=== PATIENT | male | born 1995 | race African-American/Black ===

== ENCOUNTER 2017-10-22 01:42 | Emergency (ER) | payer BC, OTHER ==
[~2017-10-22] VITALS: Ht 182.9 cm; Wt 81.2 kg
[~2017-10-22 01:42] MED LIST: ALBU0.63 IH; LEVE500T9 PO
--- NOTE | 2017-10-22 02:00 | NUR ---
Patient brought in by rescue from house green party for altered mental status due to possible ETOH. Patient upon arrival confused but speaking with clear speech. Hyperventalating. C/O SOTELO.
[2017-10-22 02:18] LABS: BASOPHILS % (AUTO) 0.7 % (0.0-2.0); EOSINOPHILS # (AUTO) 0.2 K/uL (0.0-0.7); HEMATOCRIT 44.7 % (36.7-47.1); HEMOGLOBIN 14.9 g/dL (12.5-16.3); LYMPHOCYTES # (AUTO) 2.7 K/uL (20.0-40.0); LYMPHOCYTES % (AUTO) 48.9 % (20.5-51.5); MEAN CORPUSCULAR HEMOGLOBIN 31.1 uug (23.8-33.4); MEAN CORPUSCULAR HGB CONC 33 g/dL (32.5-36.3); MEAN CORPUSCULAR VOLUME 93.1 fL (73.0-96.2); MONOCYTES # (AUTO) 0.5 K/uL (2.0-10.0); MONOCYTES % (AUTO) 9.1 % (0.0-11.0); NEUTROPHILS # (AUTO) 2.1 K/uL (1.8-8.9); NEUTROPHILS % (AUTO) 38.3 % (38.5-71.5); PLATELET COUNT (AUTO) 213 K/uL (152-348); WHITE BLOOD COUNT (AUTO) 5.5 K/uL (3.6-10.2)
[2017-10-22 02:24] LABS: CARBON DIOXIDE 13 mmol/L (21-32); CHLORIDE 97 mmol/L (98-107); CREATININE 1.6 mg/dL (0.6-1.3); GLUCOSE 125 mg/dL (74-106); POTASSIUM 3.6 mmol/L (3.5-5.1); UREA NITROGEN, BLOOD 8 mg/dL (7-18)
[2017-10-22 02:41] LABS: ALANINE AMINOTRANSFERASE 19 U/L (16-63); ALKALINE PHOSPHATASE 46 U/L (50-136); ASPARTATE AMINOTRANSFERASE 15 U/L (15-37); BILIRUBIN,DIRECT 0.2 mg/dL (0.0-0.2); BILIRUBIN,TOTAL 0.8 mg/dL (0.2-1.0)
[2017-10-22 02:42] LABS: ACETAMINOPHEN < 2.0 ug/mL (10-30)
--- NOTE | 2017-10-22 02:45 | NUR ---
Patient's friend came in and informed staff that patient had a seizures while speaking to him.
[2017-10-22 02:46] LABS: ETHANOL 14 MG/DL (0-0)
--- NOTE | 2017-10-22 03:00 | NUR ---
Patient A/Ox4, speaking with friend. States stopped taking keppra
[2017-10-22] MEDS ORDERED: LEVETIRACETAM 250 MG TABLET ONE (03:14)
[2017-10-22] MEDS ORDERED: LEVETIRACETAM 250 MG TABLET PO ONE (03:15)
--- NOTE | 2017-10-22 03:25 | NUR ---
Patient discharged to home in stable conditon with friend taking home . Written and verbal after care instructions given. Patient verbalizes understanding of instructions. Walked out of ER with steady gait. No distress noted
[2017-10-22 03:26] VITALS: BP 129/64
== END 2017-10-22 03:31 | disposition home or self-care (01) ==
LOC: ER 01:44
DX: G40.909 Epilepsy, unspecified, not intractable, without status epilepticus (principal); J45.909 Unspecified asthma, uncomplicated; Z79.899 Other long term (current) drug therapy
CPT/HCPCS: 36415; 70030-TC; 70450; 72125; 85025; 85730; 93005; A4663; G0480; G0480-TC

== ENCOUNTER 2019-03-16 00:11 | Emergency (ER) | payer BC, OTHER ==
[~2019-03-16] VITALS: Ht 190.5 cm; Wt 83.9 kg
[2019-03-16] MEDS ORDERED: IBUPROFEN 800 MG TABLET PO ONE (00:30)
[2019-03-16] MEDS ORDERED: IBUPROFEN 800 MG TABLET ONE (00:37)
[2019-03-16 00:44] VITALS: BP 138/89
== END 2019-03-16 00:41 | disposition home or self-care (01) ==
LOC: ER 00:14
DX: S66.911A Strain of unspecified muscle, fascia and tendon at wrist and hand level, right hand, initial encounter (principal); J45.909 Unspecified asthma, uncomplicated; Z79.899 Other long term (current) drug therapy; X50.1XXA Overexertion from prolonged static or awkward postures, initial encounter; Y93.89 Activity, other specified; Y92.89 Other specified places as the place of occurrence of the external cause; Y99.8 Other external cause status
CPT/HCPCS: A4663

== ENCOUNTER 2021-09-15 04:20 | Emergency (ER) | payer SELFPAY ==
[~2021-09-15] VITALS: Ht 190.5 cm; Wt 86.2 kg
--- NOTE | 2021-09-15 04:45 | NUR ---
Pt brought back to room ED3 by software sales representative Eric. Pt is complaining of a sore throat, pt otherwise healthy with no serious medical issues. Pt placed on gurney in pos of comfort. VSS, Pe wnl, patiently awaiting EDMD for eval.
[2021-09-15] MEDS ORDERED: AMOX500C2 PO (04:56)
[2021-09-15] MEDS ORDERED: OXYC-128 PO (04:56)
[2021-09-15] MEDS ORDERED: AMOXicillin 250 MG CAPSULE PO ONE (05:00)
[2021-09-15] MEDS ORDERED: OXYCODONE/APAP 5-325 MG TABLET PO ONE (05:00)
--- NOTE | 2021-09-15 05:04 | NUR ---
EDMD at bedside to eval pt.
--- NOTE | 2021-09-15 05:10 | NUR ---
EDMD ordered meds and DC pt home with script and aftercare.
[2021-09-15] MEDS ORDERED: AMOXicillin 250 MG CAPSULE ONE (05:13)
[2021-09-15] MEDS ORDERED: OXYCODONE/APAP 5-325 MG TABLET ONE (05:14)
--- NOTE | 2021-09-15 05:22 | NUR ---
Pt given DC instructions and pt confirmed understanding of DC instuctions. Pt stable, VSS, PE WNL, no s/sx of distress present.
[2021-09-15 05:48] VITALS: BP 123/81
== END 2021-09-15 05:25 | disposition home or self-care (01) ==
LOC: ER 04:20
DX: J02.9 Acute pharyngitis, unspecified (principal)
CPT/HCPCS: A4663

== ENCOUNTER 2021-11-06 16:09 | Emergency (ER) | payer SELFPAY ==
[~2021-11-06] VITALS: Ht 188 cm; Wt 81.6 kg
[~2021-11-06 16:09] MED LIST changes: +AMOX500C2 PO; +OXYC-128 PO
[2021-11-06] MEDS ORDERED: TETRACAINE HCL 0.5% OPHT DROP 2 ML BOTTLE OP ONE (18:45)
[2021-11-06] MEDS ORDERED: CIPR2.5D14 LEFTEYE (19:58)
[2021-11-06] MEDS ORDERED: CYCL15DR16 OP (19:58)
--- NOTE | 2021-11-07 00:11 | NUR ---
Patient discharged to home in stable condition. Written and verbal after care instructions given. Patient verbalizes understanding of instructions. Stressed follow up or return to ER for worsening s/s. Steady gait, no SOB or labored breathing. No changes in LOC. Denies any pain/discomfort upon discharge.
[2021-11-07 00:12] VITALS: BP 113/75
== END 2021-11-06 20:15 | disposition home or self-care (01) ==
LOC: ER 16:13
DX: S05.02XA Injury of conjunctiva and corneal abrasion without foreign body, left eye, initial encounter (principal); H20.9 Unspecified iridocyclitis; Y04.2XXA Assault by strike against or bumped into by another person, initial encounter; Y92.89 Other specified places as the place of occurrence of the external cause; J45.909 Unspecified asthma, uncomplicated
CPT/HCPCS: 70450; 70486; A4663

== ENCOUNTER 2023-06-02 12:05 | Emergency (ER) | payer MEDICAID ==
[~2023-06-02] VITALS: Ht 190.5 cm; Wt 95.3 kg
[~2023-06-02 12:05] MED LIST changes: +CIPR2.5D14 LEFTEYE; +CYCL15DR16 OP
[2023-06-02] MEDS ORDERED: QUET25TA3 (12:16)
[2023-06-02] MEDS ORDERED: TRAZADONE (12:16)
[2023-06-02] MEDS ORDERED: CLONOPIN (12:16)
[2023-06-02] MEDS ORDERED: QUET25TA PO (12:17)
[2023-06-02 12:28] VITALS: BP 122/70; TEMP 98; O2SAT 99
== END 2023-06-02 12:30 | disposition home or self-care (01) ==
LOC: ER 12:05
DX: F41.9 Anxiety disorder, unspecified (principal); J45.909 Unspecified asthma, uncomplicated; F17.210 Nicotine dependence, cigarettes, uncomplicated; Z79.2 Long term (current) use of antibiotics; Z79.899 Other long term (current) drug therapy
CPT/HCPCS: A4606; A4663

== ENCOUNTER 2023-06-04 21:02 | Emergency (ER) | payer MEDICAID ==
[~2023-06-04] VITALS: Ht 190.5 cm; Wt 95.3 kg
[~2023-06-04 21:02] MED LIST changes: -AMOX500C2 PO; -CIPR2.5D14 LEFTEYE; +CLONOPIN; -CYCL15DR16 OP; +QUET25TA PO; +QUET25TA3; +TRAZADONE
[2023-06-04] MEDS ORDERED: LORA0.5T48 PO (23:11)
[2023-06-04 23:16] VITALS: BP 123/78; O2SAT 97
== END 2023-06-04 23:17 | disposition home or self-care (01) ==
LOC: ER 21:04
DX: F41.9 Anxiety disorder, unspecified (principal); J45.909 Unspecified asthma, uncomplicated; F17.210 Nicotine dependence, cigarettes, uncomplicated; Z79.2 Long term (current) use of antibiotics; Z79.899 Other long term (current) drug therapy
CPT/HCPCS: 93005; A4606; A4663